=== PATIENT | male | born 1985 | race Caucasian/White ===

== ENCOUNTER 2017-04-09 12:21 | Emergency (ER) | payer SELFPAY ==
[~2017-04-09] VITALS: Ht 185.4 cm; Wt 68.9 kg
[~2017-04-09 12:21] MED LIST: OXYC1TAB3 PO; PROM25TA9 PO
[2017-04-09 12:23] VITALS: TEMP 36.5; Ht 185.4 cm; Wt 68.9 kg
[2017-04-09] MEDS ORDERED: SODIUM CHLORIDE 0.9% 1000ML 1,000 ML IV STA (13:06)
[2017-04-09 13:32] LABS: BASO % 0.4 %; BASO ABS # 0.03 K/uL (0-0.2); COMPLETE YES; EOS % 0.7 %; HEMATOCRIT 41.6 % (42-52); IG% 0.3 %; LYMPH % 34.3 %; LYMPH ABS # 2.58 K/uL (1.2-3.4); MEAN CELL VOLUME 86.7 fL (80-100); MEAN CORPUSCULAR HGB CONC 33.4 g/dl (32-36); MEAN PLATELET VOLUME 8.8 fL (7.4-10.4); MONO % 9.2 %; NEUT % 55.1 %; PLATELET COUNT 282 K/uL (130-400); WHITE BLOOD COUNT 7.53 K/uL (4.8-10.8)
[2017-04-09 13:57] LABS: ALT/SGPT 22 U/L (12-78); BLOOD UREA NITROGEN 14 mg/dl (7-18); BUN/CREATININE RATIO 18.5 (10-20); CARBON DIOXIDE 27 mmol/L (21-32); CHLORIDE 108 mmol/L (98-107); CREATININE 0.75 mg/dl (0.60-1.40); GLUCOSE 81 mg/dl (70-99); POTASSIUM 4.2 mmol/L (3.5-5.1); SODIUM 143 mmol/L (136-145)
[2017-04-09 14:00] LABS: ALKALINE PHOSPHATASE 61 U/L (45-117); AST/SGOT 21 U/L (15-37)
[2017-04-09] MEDS ORDERED: AMOX875T PO (14:12)
[2017-04-09] MEDS ORDERED: AMOXICILLIN/CLAVULANATE TAB 875 MG TAB PO ONE (14:15)
[2017-04-09 14:46] VITALS: BP 143/68; PULSE 59; O2SAT 100
--- NOTE | 2017-04-09 17:15 | EMERGENCY ROOM VISIT NOTE ---
History Report prepared by Gabriela: Nathalie Alegre Under the Supervision of: Dr. Jackson Cortes M.D. First contact with patient: 12:30 Chief Complaint: SINUS CONGESTION/PRESSURE Stated Complaint: POSSIBLE SINUS INFECTION, SORE THROAT, NAUSEA, FEV Nursing Triage Summary: Pt states he hasn't been able to breathe for the last two weeks since his vacation in the [facility], "it's been impossible to keep anything down, I have no strength" Fever 4 days ago. History of Present Illness The patient is a 31 year old male who presents to the Emergency Room with complaints of constant sinus congestion for the past 2 weeks. He was on cruise to the [facility] and on the last day of the cruise is daughter got sick. He states that since then he has developed sinus pressure and congestion. He has yellow/green mucus. Last week he had nausea, vomiting, diarrhea, and fevers. These symptoms have resolved, but he is still feeling weak. The patient also reports a sore throat, ear pain, and sinus headaches. He states that his head, "feels like I'm swimming." He does have a history of sinus infections and bronchitis. The patient tried taking Theraflu for his symptoms without any relief. He currently does not have any headache. His last vomiting was last week. He has been tolerating fluids. Pt denies LOC, diaphoresis, visual changes, neck pain, abdominal pain, back pain, melena, hematochezia, urinary symptoms, numbness, focal weakness, lymphadenopathy, rash, or other complaints. Source of History: patient Onset: 2 weeks ago Position: nose Quality: pressure Timing: constant Associated Symptoms: + diarrhea, + fevers, + headache, + nausea, + sorethroat, + vomiting, + weakness Review of Systems See HPI for pertinent positives and negatives. A total of ten systems were reviewed and were otherwise negative. Past Medical & Surgical Medical Problems: (1) Bronchitis (2) Chronic low back pain (3) Kidney stone on left side Family History Cancer Diabetes mellitus Gallbladder disease Heart disease Lung disease Seizures Social History Smoking Status: Current Every Day Smoker Alcohol Use: occasionally Housing Status: lives alone Occupation Status: employed Current/Historical Medications Scheduled Amoxicillin & Pot Clavulanate (Augmentin 875-125 mg), 875 MG PO BID Allergies Coded Allergies: No Known Allergies (Unverified , 04/09/17) Physical Exam Vital Signs Date Time Temp Pulse Resp B/P Pulse Ox O2 Delivery O2 Flow Rate FiO2 04/09/17 14:46 59 18 143/68 100 04/09/17 13:21 52 14 124/72 98 Room Air 04/09/17 12:26 99 Room Air 04/09/17 12:23 36.5 86 17 119/80 97 Room Air Physical Exam GENERAL: Awake, alert, mildly ill appearing, no distress HEAD: Normocephalic, atraumatic. No edema. EYES: Normal conjunctiva. Sclera non-icteric. EARS: Right TM normal. Left TM normal. NOSE: Moderate congestion. OROPHARYNX: Lips, tongue, and mucosa unremarkable. No erythema or exudate. NECK: Supple. No nuchal rigidity. FROM. No adenopathy. Negative jolt accentuation test. RESPIRATORY: CTA bilaterally. No wheezes rales or rhonchi. CARDIAC: Borderline tachycardic rate, normal rhythm. ABDOMEN: Soft, non distended. No tenderness to palpation. NEURO: Normal sensorium. SKIN: No rash or jaundice noted Medical Decision & Procedures Laboratory Results 04/09/17 13:00 Red Blood Count 4.80, Mean Corpuscular Volume 86.7, Mean Corpuscular Hemoglobin 29.0, Mean Corpuscular Hemoglobin Concent 33.4, Mean Platelet Volume 8.8, Neutrophils (%) (Auto) 55.1, Lymphocytes (%) (Auto) 34.3, Monocytes (%) (Auto) 9.2, Eosinophils (%) (Auto) 0.7, Basophils (%) (Auto) 0.4, Neutrophils # (Auto) 4.16, Lymphocytes # (Auto) 2.58, Monocytes # (Auto) 0.69, Eosinophils # (Auto) 0.05, Basophils # (Auto) 0.03 04/09/17 13:00 Test 04/09/17 13:00 White Blood Count 7.53 K/uL (4.8-10.8) Red Blood Count 4.80 M/uL (4.7-6.1) Hemoglobin 13.9 g/dL (14.0-18.0) Hematocrit 41.6 % (42-52) Mean Corpuscular Volume 86.7 fL (80-100) Mean Corpuscular Hemoglobin 29.0 pg (25-34) Mean Corpuscular Hemoglobin Concent 33.4 g/dl (32-36) Platelet Count 282 K/uL (130-400) Mean Platelet Volume 8.8 fL (7.4-10.4) Neutrophils (%) (Auto) 55.1 % Lymphocytes (%) (Auto) 34.3 % Monocytes (%) (Auto) 9.2 % Eosinophils (%) (Auto) 0.7 % Basophils (%) (Auto) 0.4 % Neutrophils # (Auto) 4.16 K/uL (1.4-6.5) Lymphocytes # (Auto) 2.58 K/uL (1.2-3.4) Monocytes # (Auto) 0.69 K/uL (0.11-0.59) Eosinophils # (Auto) 0.05 K/uL (0-0.5) Basophils # (Auto) 0.03 K/uL (0-0.2) RDW Standard Deviation 44.7 fL (36.4-46.3) RDW Coefficient of Variation 14.1 % (11.5-14.5) Immature Granulocyte % (Auto) 0.3 % Immature Granulocyte # (Auto) 0.02 K/uL (0.00-0.02) Anion Gap 8.0 mmol/L (3-11) Est Creatinine Clear Calc Drug Dose 137.8 ml/min Estimated GFR () 140.7 Estimated GFR (Non- 121.4 BUN/Creatinine Ratio 18.5 (10-20) Calcium Level 9.0 mg/dl (8.5-10.1) Total Bilirubin 0.2 mg/dl (0.2-1) Direct Bilirubin < 0.1 mg/dl (0-0.2) Aspartate Amino Transf (AST/SGOT) 21 U/L (15-37) Alanine Aminotransferase (ALT/SGPT) 22 U/L (12-78) Alkaline Phosphatase 61 U/L (45-117) Total Protein 6.9 gm/dl (6.4-8.2) Albumin 3.6 gm/dl (3.4-5.0) Lipase 213 U/L (73-393) Laboratory results reviewed by me Medications Administered Medications (Trade) Dose Ordered Sig/Jayden Route Start Time Stop Time Status Last Admin Dose Admin Sodium Chloride (Nss 1000ml) 1,000 ml @ 999 mls/hr Q1H1M STAT IV 04/09/17 13:06 04/09/17 14:06 DC 04/09/17 13:12 999 MLS/HR Amoxicillin/ Clavulanate Potassium (Augmentin Tab) 875 mg ONE ONCE PO 04/09/17 14:15 04/09/17 14:16 DC 04/09/17 14:40 875 MG ED Course 1305: The patient was evaluated in room C8. A complete history and physical exam was performed. 1306: NSS 1000 ml @ 999 mls/hr IV 1410: I reassessed the patient at this time. He is feeling better and resting comfortably. I discussed the results and treatment plan with the patient. I answered all pertaining questions that he had. He expressed understanding and verbalized agreement. The patient will be discharged home. 1415: Augmentin tab 875 mg PO Medical Decision Triage Nursing notes reviewed. The patient's presentation and history were concerning for flulike symptoms. Etiologies such as sinusitis, viral syndrome, otitis, pharyngitis, pneumonia, urinary tract infection, sepsis, bacteremia, meningitis, electrolyte abnormality , dehydration, as well as others were entertained. The patient was evaluated. IV was established. He was hydrated. He had no meningeal findings. No otitis or significant pharyngitis on examination. He did have moderate sinus congestion and this has been present for over 2 weeks. He has a history of sinusitis. He does not have any significant headache at this point in time. His blood work was unremarkable. He had no abnormal chest sounds and x-ray imaging was deferred as he has no chest symptoms. The patient was given a dose of Augmentin and I discussed treatment of sinusitis with him. He was in agreement as he has had this before. He has done well with Augmentin in the past. It has been sometime since his last treatment. If he worsens in any way he will come back to the emergency department. I gave my usual and customary discussion regarding this issue. By the evaluation outlined above other emergent etiologies such as those listed in the differential, as well as others, were deemed relatively unlikely. The patient was informed about the findings as listed above. All questions were answered and he was pleased with the treatment. Return instructions were outlined and the patient was discharged in stable condition. The patient was referred to his PCP for follow-up for a recheck of the current condition. The chart was completed utilizing [employer] Speech voice recognition software. Grammatical errors, random word insertions, pronoun errors, and incomplete sentences are an occasional consequence of this system due to software limitations, ambient noise, and hardware issues. Any formal questions or concerns about the content, text, or information contained within the body of this dictation should be directly addressed to the physician for clarification. Impression Primary Impression: Sinusitis Additional Impression: Fatigue Scribe Attestation The scribe's documentation has been prepared under my direction and personally reviewed by me in its entirety. I confirm that the note above accurately reflects all work, treatment, procedures, and medical decision making performed by me. Departure Information Dispostion Home / Self-Care Prescriptions Amoxicillin & Pot Clavulanate (Augmentin 875-125 mg) 1 Tab Tab 875 MG PO BID, #19 TAB Prov: Jackson Cortes MD 04/09/17 Referrals No Doctor, Assigned (PCP) Gaby Marvin M.D. Forms HOME CARE DOCUMENTATION FORM, IMPORTANT VISIT INFORMATION, WORK / SCHOOL INSTRUCTIONS Patient Instructions My [facility] Additional Instructions Amoxicillin Clavulanate (Augmentin) 875mg: Take one pill twice daily for 10 days for your sinus infection. All antibiotics can cause diarrhea. If this occurs and you feel worse or it does not resolve in 1-2 days follow up with your doctor or return to the Emergency Department as this could be signs of serious underlying problems. Any medication can cause an allergic reaction, stop the pills immediately and return to the ER for rash, hives, breathing difficulties, or swelling. Acetaminophen(Tylenol) may be used for fever or pain. Use 1000mg every six hours as needed. Avoid using more than 4000mg in a 24 hour period. (AND/OR) Ibuprofen(Motrin, Advil) may be used for fever or pain. Use 600mg every six hours as needed. Take with food. Avoid using more than 2400mg in a 24 hour period. Do not use 2400mg per day for more than three consecutive days without physician direction. Prolonged inappropriate use can lead to stomach upset or ulcers. Afrin nasal spray: 2-3 sprays to each nostril twice daily as needed for congestion. Do not use for more than 3-4 days because it can lead to worsening rebound congestion. This is [id number]. Rest and drink plenty of fluids. Controlling your fever with Tylenol and Ibuprofen as above will make you feel better. Wash your hands after nose blowing, sneezing, or coughing. Most germs are spread through contact, therefore improper hygiene may result in your close contacts and loved ones becoming ill just like you. Return to the ER for severe headache, neck stiffness, chest pain, difficulty breathing, fevers, vomiting, worsening of your condition, or as needed. Follow up with your primary physician this week for a recheck of your current condition. Problem Qualifiers Primary Impression: Sinusitis Sinusitis location: unspecified location Chronicity: acute Recurrence: not specified as recurrent Qualified Codes: J01.90 - Acute sinusitis, unspecified Additional Impression: Fatigue Fatigue type: unspecified Qualified Codes: R53.83 - Other fatigue
== END 2017-04-09 14:48 | disposition home or self-care (01) ==
LOC: C.EDB 12:23 → C.EDC 14:48
DX: J01.90 Acute sinusitis, unspecified (principal); R53.83 Other fatigue; M54.5 Low back pain; G89.29 Other chronic pain; Z87.442 Personal history of urinary calculi; Z80.9 Family history of malignant neoplasm, unspecified; Z83.3 Family history of diabetes mellitus; Z82.0 Family history of epilepsy and other diseases of the nervous system; F17.210 Nicotine dependence, cigarettes, uncomplicated

== ENCOUNTER 2018-02-27 11:44 | Emergency (ER) | payer OTHER ==
[~2018-02-27] VITALS: Ht 185.4 cm; Wt 71.2 kg
[2018-02-27 11:46] VITALS: TEMP 36.7; Ht 185.4 cm; Wt 71.2 kg
[2018-02-27] MEDS ORDERED: BENZ1CAP90 PO (12:12)
--- NOTE | 2018-02-27 12:13 | EMERGENCY ROOM VISIT NOTE ---
ED Visit Note First contact with patient: 11:58 CHIEF COMPLAINT: Sinus congestion, diarrhea, decreased appetite, "I'm really here for a doctor's note" HISTORY OF PRESENT ILLNESS: This 32-year-old male patient presents to the emergency department ambulatory, complaining of URI symptoms x 3 days. The patient states they have been experiencing congestion, runny nose, sore throat, cough, chills, and diarrhea 2 days ago, however this has improved. The patient also associates a decreased appetite. He took 1 dose of Tylenol Cold and flu, and did not note significant improvement in his symptoms.. They deny any other symptoms including otalgia, swollen lymph nodes, fever, nausea, or vomiting. There is pain with swallowing due to the sore throat. The patient describes the drainage from the nose as runny and yellowish. There no sinus pressure or pain. The patient has been experiencing a cough, and states first thing in the morning, he does cough up some mucus. He works as a product development director for [employer], and states there are not the most hygienic cleaning practices at his job. He is concerned for possible upper respiratory infection. The patient does not recall any known exposure to strep throat. The patient does not have a history of sinus infections. Patient does have a history of allergic rhinitis. Denies a rash. The patient states he is really just here for a doctor's note because his boss has been hesitant to allow him to be off work. REVIEW OF SYSTEMS: A 10 system system review of systems was performed with positives and pertinent negatives listed in the history of present illness. All other systems were reviewed and are negative. ALLERGIES: None MEDICATIONS: None PMH: None SOCIAL HISTORY: The patient lives locally with family. He denies drug, alcohol use. He admits to smoking 1 pack of cigarettes per day. PHYSICAL EXAM: VITALS: Vitals are noted on the nurse's note and reviewed by myself. Vital signs stable. GENERAL: This is a 32-year-old male, in no acute distress, nondiaphoretic, well- developed well-nourished. SKIN: The skin was without rashes, erythema, edema, or bruising. There is no tenting of the skin. Capillary reflex less than 2 seconds. HEAD: Normocephalic atraumatic. EARS: External auditory canals clear, bilateral tympanic membranes pearly jordan with very mild erythema, but no effusion bilaterally. EYES: Pupils equal round and reactive to light and accommodation. Conjunctivae without injection, sclerae without icterus. Extraocular movements intact. NOSE: Patent, turbinates with mild inflammation, but no erythema. Clear rhinorrhea noted. No sinus tenderness. MOUTH: Mucous membranes moist. Tonsils are not enlarged. Pharynx without erythema or exudate. Uvula midline. Airway patent. Tongue does not deviate. NECK: Supple without nuchal rigidity. No lymphadenopathy. No thyromegaly. Cervical spine is nontender. No JVD. HEART: Regular rate and rhythm without murmurs gallops or rubs. LUNGS: Clear to auscultation bilaterally without wheezes, rales or rhonchi. No dullness to percussion. No retractions or accessory muscle use. MUSCULOSKELETAL: No muscle atrophy, erythema, or edema noted. Full range of motion without joint tenderness in all extremities. No tenderness to palpation. Normal gait. Strength 5/5 throughout. NEURO: Patient was alert and oriented to person place and time. Normal sensation to light and sharp touch. No focal neurological deficits. EMERGENCY DEPARTMENT COURSE: The patient was seen and evaluated as above. I offered to perform strep testing, influenza testing, and chest x-ray, the patient declines. His symptoms are consistent with a viral URI versus allergic rhinitis. The patient does have history of allergic rhinitis which has presented similarly. He has not been taking any OTC medications consistently, so I suspect he will improve over the next week with these medications. He has not had a fever, nor do his symptoms appear bacterial in nature. The patient states he is in agreement with this plan, and is really just here for a work note. He will be provided with a work note for this week.. Discharge instructions reviewed, and the patient was discharged home in good condition. I attest that I have personally reviewed the patient's current medication list. Patient was found to have normal blood pressure on screening and does not require follow-up. DIFFERENTIAL DIAGNOSIS: Allergic rhinitis, influenza, pneumonia, bronchitis, acute sinusitis, Acute pharyngitis, URI, Strep Pharyngitis, gastroenteritis, peritonsillar abscess, tonsillitis, malignancy, and others DIAGNOSIS: Upper respiratory infection The chart was completed utilizing [employer] voice recognition software. Grammatical errors, random word insertions, pronoun errors, and incomplete sentences are an occasional consequence of this system due to software limitations, ambient noise, and hardware issues. Any formal questions or concerns about the content, text, or information contained within the body of this dictation should be directly addressed to the provider for clarification. Problem List Medical Problems: (1) Bronchitis Status: Resolved (2) Chronic low back pain Status: Chronic (3) Kidney stone on left side Status: Resolved Current/Historical Medications Scheduled PRN Benzonatate (Tessalon Perles), 200 MG PO TID PRN for Cough Allergies Coded Allergies: No Known Allergies (Unverified , 02/27/18) Vital Signs Date Time Temp Pulse Resp B/P (MAP) Pulse Ox O2 Delivery O2 Flow Rate FiO2 02/27/18 12:50 64 129/78 98 02/27/18 12:06 99 Room Air 02/27/18 11:46 36.7 78 20 121/84 99 Room Air Departure Information Impression Primary Impression: Upper respiratory infection Dispostion Home / Self-Care Condition GOOD Prescriptions Benzonatate (Tessalon Perles) 200 Mg Cap 200 MG PO TID Y for Cough, #30 CAP Prov: Betzaida Kasper PA-C 02/27/18 Referrals No Doctor, Assigned (PCP) Patient Instructions ED Upper Resp Infec No Abx Tx, My [facility] Additional Instructions You were seen and evaluated in the emergency department today for an upper respiratory infection. I do feel that based on your symptoms, and the duration of illness, this is likely viral in nature. As discussed, antibiotics will not treat viral illness. You have been given benzonatate (Tessalon Pearles) to be used for coughing. These should be taken 1 capsule up to 3 times per day as needed for coughing. Do not take this medication more than prescribed. You may use this medication in addition to OTC cough medications. For your sore throat, you may use a 1:1 mixture of liquid Benadryl and liquid Maalox. Gargle and spit this mixture. It will help to soothe the throat and provide some relief. Drink warm tea with honey and lemon, as this will also help to soothe the throat. Gargle with salt water frequently. As discussed, you should take OTC Mucinex and/or Sudafed for your symptoms. Please do not exceed the recommended daily dosages. Ibuprofen(Motrin, Advil) may be used for fever or pain. Use 600mg every six hours as needed. Take with food. Avoid using more than 2400mg in a 24 hour period. Do not use 2400mg per day for more than three consecutive days without physician direction. Prolonged inappropriate use can lead to stomach upset or ulcers. This medication will help with the swelling in your sinuses. (AND/OR) Acetaminophen(Tylenol) may be used for fever or pain. Use 1000mg every six hours as needed. Avoid using more than 3000mg in a 24 hour period. For congestion, you may use Flonase OTC. You may consider an antihistamine such as Claritin, Zyrtec, or Makayla to help dry out the sinuses. Take as directed on the package. You may want to consider zinc, echinacea, and vitamin C to help boost your immunity. Please get plenty of rest and drink plenty of fluids. Please return or follow-up with your PCP in 1 week if you are not experiencing any improvement in your symptoms. Return to the emergency department for coughing up blood, difficulty breathing, chest pain, worsening symptoms, or for other concerns. Problem Qualifiers Primary Impression: Upper respiratory infection URI type: unspecified viral URI Qualified Codes: J06.9 - Acute upper respiratory infection, unspecified
[2018-02-27 12:50] VITALS: BP 129/78; PULSE 64; O2SAT 98
== END 2018-02-27 12:45 | disposition home or self-care (01) ==
LOC: C.EDB 11:46 → C.EDC 12:45
DX: J06.9 Acute upper respiratory infection, unspecified (principal); J30.9 Allergic rhinitis, unspecified; F17.200 Nicotine dependence, unspecified, uncomplicated